=== PATIENT | male | born 1960 | race Caucasian/White ===

== ENCOUNTER 2017-11-06 06:20 | Day surgery (SDC) | END 2017-11-06 17:43 | disposition home or self-care (01) ==

== ENCOUNTER 2018-07-08 11:32 | Day surgery (SDC) | payer OTHER ==
[2018-07-08] VITALS (13 sets, daily range): BP systolic 115–157; BP diastolic 54–73; PULSE 66–80; RESP 15–21; Ht 170.2 cm; Wt 68.9 kg
[~2018-07-08] VITALS: Ht 170.2 cm; Wt 68.9 kg
[~2018-07-08 11:32] MED LIST: ASPI325T32 PO; ATOR20TA38 PO; CEFAZOLIN 1 GM/50 ML (PMX) 50 ML IVPB SCH; EPHEDrine SULFATE 50 MG/5 ML SYG ONE; FURO40TA4 PO; GLYCOPYRROLATE 0.4 MG INJ ONE; HYDR100T25 PO; LOSA100T15 PO; METF-849 PO; METO-336 PO; SOD CHLORIDE 0.9% 1,000 ML IV SCH
--- NOTE | 2018-07-08 12:00 | PREAC ---
Date/Time of Note Date/Time of Note DATE: 07/08/18 TIME: 11:59 Anesthesia Eval and Record Evaluation Time Pre-Procedure Interview DATE: 07/08/18 TIME: 11:59 Age 57 Sex male NPO: 8 hrs Preoperative diagnosis right inguinal hernia Planned procedure inguinal hernia repair with mesh Past Medical History Past Medical History: Includes Cardio: HTN, Other ([id number]) Endo: Diabetes Surgery & Anesthesia Issues No known issue Meds Anticoagulation: No Beta Solitario within 24 hr: Yes Reason Beta Solitario not given: Pt. not on B-Solitario Reported Medications Metoprolol Succinate* (Toprol XL*) 100 Mg Tab.sr.24h, 100 MG PO DAILY, #30 TAB 11/06/17 Losartan Potassium* (Losartan Potassium*) 100 Mg Tablet, 100 MG PO DAILY, TAB 11/06/17 Furosemide* (Furosemide*) 40 Mg Tablet, 40 MG PO DAILY, TAB 11/06/17 Hydralazine Hcl* (Hydralazine Hcl*) 100 Mg Tablet, 100 MG PO Q8, #90 TAB 11/06/17 Atorvastatin Calcium* (Atorvastatin Calcium*) 20 Mg Tablet, 20 MG PO DAILY 07/13/13 Aspirin (Aspirin) 325 Mg Tablet.dr, 325 MG PO DAILY 07/13/13 Metformin* (Glucophage*) 500 Mg Tab, 1000 MG PO BID 07/10/13 Current Medications Cefazolin Sodium 50 ml @ 100 mls/hr PREOP IVPB ; Start 07/08/18 at 07:00; Stop 07/08/18 at 16:00 Sodium Chloride 1,000 ml @ 75 mls/hr [id number] IV ; Start 07/08/18 at 07:00; Stop 07/08/18 at 20:19 Meds reviewed: Yes Allergies Coded Allergies: No Known Allergies (Verified Allergy, Mild, 05/01/10) Allergies Reviewed: Yes Labs/Studies Labs Reviewed: Reviewed by anesthesiologist test: N/A Studies: ECG (sr), CXR (nl) Pre-procedure Exam Airway: Adequate mouth opening Mallampati: Mallampati I Teeth: Abnormal (denture) Lung: Normal Heart: Normal ASA Physical Status ASA physical status: 2 Emergency: None Planned Anesthetic General/MAC: ETT Nerve block: TAP (right) Planned Pain Management Single shot nerve block, Parenteral pain med Pre-operative Attestations Prior to commencing anesthesia and surgery, the patient was re-evaluated, there was verification of: *The patient's identity *The results of appropriate recent lab work and preoperative vital signs *The above evaluation not changing prior to induction *Anesthetic plan, risk benefits, alternative and complications discussed with patient/family; questions answered; patient/family understands, accepts and wishes to proceed. SUMMER SWEENEY MD Jul 08, 2018 12:00
[2018-07-08] MEDS ORDERED: OMEP20CA16 PO (12:11)
[2018-07-08] MEDS ORDERED: GLIP5TAB13 PO (12:12)
[2018-07-08] MEDS ORDERED: CALC0.5C10 PO (12:12)
[2018-07-08] MEDS ORDERED: FER325 PO (12:12)
[2018-07-08] MEDS ORDERED: GABA100C14 PO (12:13)
[2018-07-08] MEDS ORDERED: HYDR100T25 PO (12:20)
[2018-07-08] MEDS ORDERED: SPIR25TA PO (12:21)
[2018-07-08] MEDS ORDERED: METO-336 PO (12:21)
[2018-07-08] MEDS ORDERED: FURO40TA4 PO (12:22)
[2018-07-08] MEDS ORDERED: ALLO100T PO (12:22)
[2018-07-08] MEDS ORDERED: AMLO-147 PO (12:23)
[2018-07-08] MEDS ORDERED: LOSA100T15 PO (12:23)
[2018-07-08] MEDS ORDERED: BUPIVACAINE 0.5%/EPI (SDV) 30 ML INJ ONE (14:17)
[2018-07-08] MEDS ORDERED: POLYMYXIN/BACITRACIN 1L IRRIG ONE (14:17)
--- NOTE | 2018-07-08 14:21 | HPN ---
Date/Time of Note Date/Time of Note DATE: 07/08/18 TIME: 14:21 Interval H&P Admission Note Pt. seen H&P reviewed: No system changes MILLIE SLATER MD Jul 08, 2018 14:21
[2018-07-08] MEDS ORDERED: ROPIVACAINE 0.2% 20 ML VIAL ONE ×2 (14:27→14:28)
[2018-07-08] MEDS ORDERED: ONDANSETRON 4 MG INJ ONE (14:28)
[2018-07-08] MEDS ORDERED: ROCURONIUM 50 MG INJ ONE (14:28)
[2018-07-08] MEDS ORDERED: METOCLOPRAMIDE 10 MG INJ ONE (14:28)
[2018-07-08] MEDS ORDERED: PROPOFOL 20 ML ONE (14:28)
[2018-07-08] MEDS ORDERED: DIPHENHYDRAMINE 50 MG INJ IV PRN (15:00)
[2018-07-08] MEDS ORDERED: HYDROmorphONE 1 MG/5 ML IV SYRINGE IV PRN ×3 (15:00)
[2018-07-08] MEDS ORDERED: MEPERIDINE 25 MG INJ IV PRN (15:00)
[2018-07-08] MEDS ORDERED: LABETALOL HCL 20MG INJ IV PRN (15:00)
[2018-07-08] MEDS ORDERED: hydrALAzine 20 MG INJ IV PRN (15:00)
[2018-07-08] MEDS ORDERED: ONDANSETRON 4 MG INJ IV PRN ×2 (15:00→16:30)
[2018-07-08] MEDS ORDERED: EPHEDrine SULFATE 50 MG/5 ML SYG IV PRN (15:00)
[2018-07-08] MEDS ORDERED: CEFAZOLIN 1 GM INJ ONE (16:23)
[2018-07-08] MEDS ORDERED: NEOSTIGMINE 3 MG/3 ML SYRINGE ONE (16:24)
--- NOTE | 2018-07-08 16:26 | OPR ---
Date/Time of Note Date/Time of Note DATE: 07/08/18 TIME: 16:19 Operative Report Procedure Date: Jul 08, 2018 Preoperative Diagnosis Right inguinal hernia without obstruction or gangrene Postoperative Diagnosis Right inguinal hernia without obstruction or gangrene Operation/Procedure Performed 1. Open right inguinal hernia repair with mesh 2. Right ilioinguinal nerve block Surgeon see signature line User Experience Researcher None Anesthesia Type: general Anesthesiologist: SUMMER SWEENEY MD Estimated Blood Loss: minimal Transfusion none Specimen Hernia sac Grafts/Implants Ethicon ultra pro plug and patch size medium Complications none Pt Condition Post Procedure: stable Disposition: PACU Indications The patient is a 57-year-old male with multiple comorbidities including chronic renal insufficiency, diabetes, hypertension, hypercholesterolemia, prior left inguinal hernia repair who presented to the office complaining of a painful [right] groin bulge. [He] was diagnosed on clinical exam as having a [right] inguinal hernia. The patient was scheduled for open [right] inguinal hernia repair with mesh to prevent sequelae of hernia disease which include, but are not limited to: Incarceration and strangulation. All risks and benefits of the procedure including but not limited to: Wound infection, excessive bleeding, postoperative seroma/hematoma formation, nerve injury which may be temporary versus permanent, injury to the reproductive organs including the vas deferens and the testicle which may lead to testicular atrophy, injury to intra-abdominal organs necessitating subsequent operation, hernia recurrence, chronic pain, etc. were all explained to the patient full detail. The patient fully understood and wished to proceed with the procedure. Informed consent was therefore obtained. The patient was medically cleared by his primary care physician prior to the procedure. Procedure Description The patient was brought to the operating room and placed supine on the operating table. Bilateral sequential compression devices were placed on both lower extremities. A dose of broad-spectrum perioperative intravenous antibiotics was given. After the induction of smooth general anesthesia the patient's abdomen and bilateral groins were prepped and draped in standard surgical fashion. A tap block was performed by the anesthesiologist and will be documented by her separately. After performance of the surgical timeout 0.5% Marcaine with epinephrine was injected over the area of the incision. Incision was then made using a 15 blade scalpel from the right pubic tubercle towards the right anterior superior iliac spine. Incision was carried down through the skin into the subcutaneous tissues using Bovie electrocautery. Kaiden's fascia was incised and the aponeurosis of the external oblique muscle was reached. The aponeurosis of the external oblique muscle was then incised in the direction of its fibers using a 15 blade scalpel and further opened using Metzenbaum scissors. The ilioinguinal nerve was identified on top of the spermatic cord. It was isolated and preserved throughout the entirety of the procedure. Using blunt dissection the spermatic cord was then mobilized off of the floor of the inguinal canal and encircled using a [place] drain. The cord structures were identified and preserved throughout the entirety of the procedure. Cremasteric muscles were incised and dissection of the cord was begun. A large indirect hernia sac was identified. It was densely scarred to the spermatic cord. It wa s tediously dissected off of the cord preserving the cord structures. The distal portion of the sac extended into the scrotum. Dissection was continued towards the neck of the hernia. The sac was opened atraumatically. The fat contained within the sac was reduced back into the intra-abdominal cavity. The rest of the sac was then circumferentially dissected to the level of the neck of the hernia. The distal sac was transected and ligated with a 2-0 Vicryl suture. The excess proximal sac was also suture ligated with a 2-0 Vicryl suture and passed off the field as specimen. The remaining sac was reduced back into the peritoneal cavity. The indirect hernia defect was then repaired using a medium sized Ethicon ultra pro plug. The plug was sutured in place using interrupted 3-0 Vicryl sutures. An onlay mesh was then used to reconstruct the floor of the inguinal canal. It was secured in place using interrupted 2-0 Novafil sutures. Both the plug and the mesh were soaked in antibiotic irrigation prior to placement in the field. A slit was made in the mesh to accommodate the spermatic cord. With the repair complete it was examined and noted to be hemostatic and tension-free. Adequacy of the repair was confirmed Via Valsalva maneuver performed by the anesthesiologist. The wound cavity was then irrigated with more antibiotic containing irrigation. Spermatic cord was then placed back into its anatomical position. The aponeurosis of the external oblique muscle was then reapproximated using a running 3-0 Vicryl suture. Incision was then closed in layers using a running 3-0 Vicryl suture for the Kaiden's fascia. The skin was then reapproximated using 4-0 Monocryl suture in a running subcuticular fashion. Attention was then turned to the right ilioinguinal nerve block. 10 cc of 0.5% Marcaine with epinephrine was then injected in a radial fashion approximately 2 fingerbreadths medial and inferior to the right anterior superior iliac spine. Incision was cleaned and Dermabond was applied. The patient was awoken from anesthesia and transferred to the recovery room in stable condition. Both testicles were palpated and noted to be in their anatomical positions at the end of the case. All counts were correct at the end of the case 2. MILLIE SLATER MD Jul 08, 2018 16:25
[2018-07-08] MEDS ORDERED: morphine 2 MG INJ IV PRN (16:30)
[2018-07-08] MEDS ORDERED: OXYCODONE/ACETAMINOPHEN (5/325) TAB PO PRN ×2 (16:30)
--- NOTE | 2018-07-09 07:16 | PAC ---
Date/Time of Note Date/Time of Note DATE: 07/09/18 TIME: 07:15 Post-Anesthesia Notes Post-Anesthesia Note Last documented vital signs Vital Signs Date Temp Pulse Resp B/P (MAP) Pulse Ox O2 O2 Flow FiO2 Time Delivery Rate 07/08/18 98.2 72 18 120/56 98 Room Air 17:35 (77) Activity: WNL Respiratory function: WNL Cardiovascular function: WNL Mental status: Baseline Pain reasonably controlled: Yes Hydration appropriate: Yes Nausea/Vomiting absent: No SUMMER SWEENEY MD Jul 09, 2018 07:16
== END 2018-07-08 18:27 | disposition home or self-care (01) ==
LOC: SDS 11:32
PROVIDERS: ATTEND Surgery
DX: K40.90 Unilateral inguinal hernia, without obstruction or gangrene, not specified as recurrent (principal); I10 Essential (primary) hypertension; E11.9 Type 2 diabetes mellitus without complications
CPT/HCPCS: 49505; 80048; 82962; 88302; J0690; J1170; J2405; J2710; J2765; J2795; Z7610; C1781